=== PATIENT | female | born 1980 | race Caucasian/White ===

== ENCOUNTER 2018-10-13 09:56 | Inpatient (IN) ==
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
--- NOTE | 2018-10-10 12:35 | History and Physical Report ---
DATE OF ADMISSION: 10/13/2018 CHIEF COMPLAINT: Back pain, lower extremity difficulty, numbness, tingling, paresthesias. HISTORY OF PRESENT ILLNESS: She has knife-like pain, burning in nature, weakness associated. She is miserable. Four to six years in duration, failed conservative care including chiropractic physicians, therapy, medications. Visual analog scale, her pain is rated an 8. PAST MEDICAL HISTORY: Anxiety, asthma, stomach ulcers. PAST SURGICAL HISTORY: Tooth extraction. ALLERGIES: Negative. MEDICATIONS: Include gabapentin, diclofenac, narcotics, cold meds, an inhaler for COPD. FAMILY HISTORY: Diabetes. SOCIAL HISTORY: She is . No alcohol. Three children. One pack a day of cigarettes. REVIEW OF SYSTEMS: Positive for joint pain and weakness. No fevers, sweats, chills. Denies chest pain, palpitations. Respiratory, asthma. No shortness of breath. Denies nausea and vomiting. Has anxiety, depression. No diabetes. PHYSICAL EXAMINATION: GENERAL: She is 5 feet 6 inches, 160. She is alert, oriented. She is miserable. VITAL SIGNS: Blood pressure 130/80, pulse 80s, respiratory rate 16. HEENT: Pupils react to light and accommodation. Ear, nose and throat clear. LUNGS: Clear to auscultation. No rales, rhonchi or wheezing. ABDOMEN: Soft and nontender. CARDIOVASCULAR: Normal S1, S2, 80 beats per minute. No edema. SKIN: Intact. MUSCULOSKELETAL: She has decreased range of motion of the lumbar spine. Pain with percussion. She cannot come upright. She is bent over in kyphosis. She has weakness with plantarflexion. IMAGING DATA: X-rays demonstrate spondylolisthesis of the spine. PLAN: We have offered her a lumbar spine PLIF procedure, posterior lumbar interbody fusion at L5-S1.
[~2018-10-13 09:56] MED LIST: ACETAMINOPHEN 500 MG TAB PO SCH; CEFAZOLIN 2000MG 2,000 MG/15 ML SYR IV SCH; LR 15ML/HR IV SCH; SODIUM CHLORIDE 0.9% 1,000 ML IV SCH
[2018-10-13] MEDS ORDERED: MIDAZOLAM HCL 1 MG/ML 2ML VIAL ONE (10:39)
[2018-10-13] MEDS ORDERED: fentaNYL citrate 100 MCG/2 ML VIAL ONE (10:39)
[2018-10-13] MEDS ORDERED: ACETAMINOPHEN 1000 MG/100 ML IV IV ONE (10:55)
[2018-10-13] MEDS ORDERED: ACETAMINOPHEN 1,000 MG/100 ML VIAL IV SCH (11:00)
[2018-10-13] MEDS ORDERED: GELATIN SPONGE SZ 100 ONE (11:24)
[2018-10-13] MEDS ORDERED: THROMBIN FOR SOLN 20000 UNIT KIT ONE (11:24)
[2018-10-13] MEDS ORDERED: VANCOMYCIN HCL 1000MG/20ML VIAL ONE (11:24)
[2018-10-13] MEDS ORDERED: BUPIVACAINE/EPINEPHRINE 0.5% MPF 1:200,000 30 ML VIAL ONE (11:24)
[2018-10-13] MEDS ORDERED: BACITRACIN INJ 50,000 UNIT VIAL ONE (11:24)
[2018-10-13] MEDS ORDERED: ONDANSETRON INJ 2 MG/ML 2 ML VIAL IV PRN ×2 (11:39→16:06)
[2018-10-13] MEDS ORDERED: ATROPINE SULFATE 0.1 MG/ML 10ML SYR IV PRN (11:39)
[2018-10-13] MEDS ORDERED: HYDROmorphone INJ 1 MG/ML SYRINGE IV PRN (11:39)
[2018-10-13] MEDS ORDERED: ePHEDrine sulfate 50 MG/ML AMP IV PRN (11:39)
--- NOTE | 2018-10-13 11:39 | History & Physical Bridge Note ---
Date of Service October 13, 2018 History & Physical Bridge Note I have examined the patient, reviewed the History & Physical and in the interval since the performance of the History & Physical I have noted the following changes of clinical significance: no changes noted
[2018-10-13] MEDS ORDERED: ONDANSETRON INJ 2 MG/ML 2 ML VIAL ONE (12:18)
[2018-10-13] MEDS ORDERED: ROCURONIUM BROMIDE 10 MG/ML 5 ML VIAL ONE (12:18)
[2018-10-13] MEDS ORDERED: ePHEDrine sulfate 50 MG/ML AMP ONE (12:18)
[2018-10-13] MEDS ORDERED: LIDOCAINE HCL 2% 2 ML VIAL/AMP(20MG/ML) INFIL ONE (12:18)
[2018-10-13] MEDS ORDERED: NEOSTIGMINE METHYLSULFATE 5 MG/5 ML SYR ONE (12:18)
[2018-10-13] MEDS ORDERED: GLYCOPYRROLATE 0.2 MG/ML VIAL ONE (12:18)
[2018-10-13] MEDS ORDERED: DEXAMETHASONE SOD INJ 4 MG/ML VIAL ONE (12:18)
[2018-10-13] MEDS ORDERED: LARYING-O-JET KIT (LTA) ONE (12:18)
[2018-10-13] MEDS ORDERED: PROPOFOL IV EMULSION 10 MG/ML 20 ML VIAL IV ONE (12:18)
[2018-10-13] MEDS ORDERED: HYDROmorphone INJ 2 MG/ML SYR/VIAL ONE (12:19)
--- NOTE | 2018-10-13 14:00 | Fluoroscopy Report ---
INTRAOPERATIVE RADIOGRAPH CLINICAL HISTORY: L5-S1 spinal fusion. Fluoroscopy time: 13 seconds. FINDINGS: A single spot fluoroscopic view of the lower lumbar spine is presented. There has been disc ectomy at L5-S1, with laminectomy and posterior fusion from L4 -S1. Interpedicular screws are present at all levels. The orthopedic hardware appears intact. IMPRESSION: Intraoperative image from L4 -S1 spinal fusion as above. Electronically signed by: Abdelrahman Stevens M.D. 10/13/2018 1:59 PM
--- NOTE | 2018-10-13 14:26 | Post Operative Brief Note ---
Immediate Post Op Note v1 Date of Surgery October 13, 2018 Pre & Post Diagnosis Operation Date: 10/13/18 11:40 Pre-Op Diagnosis: Spondylolisthesis Post-Op Diagnosis: Spondylolisthesis Procedure Operation Date: 10/13/18 11:40 Actual Procedures p L4-S1 Decompression and Fusion , L5-S1 Interbody Cage(Not Applicable) - Jayme Winters DO Surgeon Jayme Winters DO Cyanide Furnace Operator tennille Estimated Blood Loss 250 Findings Consistent with Post-Op Diagnosis Drains Robb Catheter and Hemovac Drain Complications none Disposition Accompanied Patient To Recovery: Yes Disposition: Recovery Room Overlapping Procedure I was immediately available: during the entire case.
[2018-10-13] MEDS: fentaNYL citrate 100 MCG/2 ML VIAL IV PRN ×3 (14:38→14:50)
--- NOTE | 2018-10-13 15:20 | Anesthesiology Progress Note ---
Date of Service October 13, 2018 Anesthesia Post Procedure Vital Signs Vital Signs: Temp Pulse Pulse Resp BP Pulse Ox 10/13/18 15:05 36.5 C 91 H 14 145/78 H 99 10/13/18 14:55 36.7 C 84 14 124/75 99 10/13/18 14:45 36.7 C 89 16 121/92 98 10/13/18 14:35 36.7 C 91 H 16 112/69 98 10/13/18 14:25 36.7 C 101 H 14 126/90 99 10/13/18 10:32 37.1 C 103 H 16 143/97 H 93 Pain Intensity Lower Back: Pain Intensity: 10 Transfer of Care Handoff Completed per policy Notes Mental Status: alert / awake / arousable Patient Amnestic to Procedure: Yes Nausea / Vomiting: adequately controlled Pain: adequately controlled Airway Patency, RR, SpO2: stable & adequate BP & HR: stable & adequate Hydration State: stable & adequate Anesthetic Complications: no major complications apparent and Pt Satisfied with anesthetic care
[2018-10-13] MEDS ORDERED: FAMOTIDINE 20 MG TAB PO PRN (16:06)
[2018-10-13] MEDS ORDERED: HYDROmorphone INJ 0.5 MG/0.5 ML SYR IV PRN (16:06)
[2018-10-13] MEDS ORDERED: ACETAMINOPHEN 1,000 MG/100 ML VIAL IV PRN (16:06)
[2018-10-13] MEDS ORDERED: SOD PHOSPHATE/SOD BIPHOSPHATE ENEMA 132 ML BTL PR PRN (16:06)
[2018-10-13] MEDS ORDERED: ALBUTEROL HFA 8 GM INHALER INH PRN (16:06)
[2018-10-13] MEDS ORDERED: METOCLOPRAMIDE HCL INJ 5 MG/ML 2 ML VIAL IV PRN (16:06)
[2018-10-13] MEDS ORDERED: BISACODYL 10 MG SUPP PR PRN (16:06)
[2018-10-13] MEDS: KETOROLAC 30 MG/ML VIAL IV SCH ×2 (18:07→23:34)
[2018-10-13] MEDS: SUCRALFATE 1 GM TAB PO SCH ×2 (18:08→20:21)
[2018-10-13] MEDS: GABAPENTIN 300 MG CAP PO SCH (20:21)
[2018-10-13] MEDS: CEFAZOLIN 2000MG 2,000 MG/15 ML SYR IV SCH (20:21)
[2018-10-13] MEDS: PANTOprazole 40 MG TAB PO SCH (20:21)
[2018-10-13] MEDS: SODIUM CHLORIDE 0.9% 1000ML 1,000 ML IV SCH (20:28)
[2018-10-13] MEDS: DOCUSATE SODIUM/SENNA 50/8.6MG TAB PO SCH (20:28)
[2018-10-14] MEDS: CEFAZOLIN 2000MG 2,000 MG/15 ML SYR IV SCH (03:14)
[2018-10-14] MEDS: KETOROLAC 30 MG/ML VIAL IV SCH ×2 (05:32→11:51)
[2018-10-14] MEDS: SODIUM CHLORIDE 0.9% 1000ML 1,000 ML IV SCH (05:34)
--- NOTE | 2018-10-14 07:54 | Anesthesiology Progress Note ---
Date of Service October 14, 2018 Anesthesia Post Procedure Vital Signs Vital Signs: Temp Pulse Pulse Pulse Resp BP Pulse Ox 10/14/18 07:29 36.7 C 71 16 103/68 97 10/14/18 03:13 36.8 C 98 H 16 100/69 96 10/13/18 22:50 36.7 C 83 16 97/64 L 93 10/13/18 21:46 95 10/13/18 21:45 87 L 10/13/18 18:51 36.7 C 77 18 108/73 94 10/13/18 17:36 36.5 C 92 H 18 105/70 95 10/13/18 16:45 36.7 C 93 H 16 114/74 93 10/13/18 16:09 36.5 C 88 18 108/70 94 10/13/18 15:35 36.9 C 86 16 110/75 95 10/13/18 15:25 36.5 C 85 16 100/72 15 L 10/13/18 15:15 36.5 C 83 14 103/66 94 10/13/18 15:05 36.5 C 91 H 14 145/78 H 99 10/13/18 14:55 36.7 C 84 14 124/75 99 10/13/18 14:45 36.7 C 89 16 121/92 98 10/13/18 14:35 36.7 C 91 H 16 112/69 98 10/13/18 14:25 36.7 C 101 H 14 126/90 99 10/13/18 10:32 37.1 C 103 H 16 143/97 H 93 Notes Mental Status: alert / awake / arousable and participated in evaluation Nausea / Vomiting: adequately controlled Pain: adequately controlled Airway Patency, RR, SpO2: stable & adequate BP & HR: stable & adequate Hydration State: stable & adequate
--- NOTE | 2018-10-14 08:23 | Operative Report ---
DATE OF OPERATION: 10/13/2018 The patient was probably identified in the holding area prior to taking back to the OR. PREOPERATIVE DIAGNOSIS: Grade 1 spondylolisthesis with forward tilt of the 5th vertebrae. POSTOPERATIVE DIAGNOSIS: Grade 1 spondylolisthesis with forward tilt of the 5th vertebrae. PROCEDURE: Included, 1. L4-L5 sacrum fusion, reduction of spondylolisthesis. 2. Pedicle screw instrumentation L4-L5 in the sacrum, a 2 level instrumentation procedure. 3. Posterior lumbar interbody fusion at L5-S1. 4. Posterolateral fusion L4, L5 and S1. SURGEON: Jayme Winters DO [employer]: Derek Garcia PA-C COMPLICATIONS: Zero. IMPLANTS USED: [employer]. BLOOD LOSS: 350 mL DESCRIPTION OF PROCEDURE: The patient was taken to the Operating Room, a general intubated anesthetic provided to the patient, placed prone, scrubbed, prepped, draped sterile. Formal timeout obtained. We made a skin incision, fascial incision. A deep retractor was placed. It was an elegant dissection down to the lamina. I felt intraoperatively and even preoperatively that there be too much strain on just the pedicle screws at 5 to the sacrum. I felt obligated to incorporate the fourth lumbar vertebrae as well to span not just sacrum up to 5, but actually sacrum up to 4 with #5 in between. We safely dissected the neural elements, got pressure off each and every nerve root. I was pleased with the amount of decompression. We then instrumented spine. I safely got pedicle screws on the right hand side at 4, 5 and sacrum and the left hand side as well at L4, L5 and sacrum. I felt that the construct was relatively stable. I went ahead and did an interbody because of his severely degenerative nature of the L5-S1 disc interspace. So I did an interbody device, PEEK spacer at the L5-S1 region. This was packed with autograft. Prior to the interbody I did a complete discectomy at L5-S1. We reduced the spondylolisthesis. We locked down the construct. We irrigated thoroughly with approximately 500 mL of fluid. I then bone grafted out over the transverse process at L4 and the sacrum. I was pleased with the decompression, fusion, instrumentation and bone grafting. We then closed in layers. Over vancomycin powder with 1 Vicryl, 2-0 and 3-0 nylon on the skin, sterile dressing applied and the patient extubated to PACU stable, improved stable condition. There were no apparent complications. Bone graft use during the case was autograft from the patient's own spine lamina and spinous process along with a DBM, demineralized bone matrix type material. Sponge and needle count correct. I attest to the content of the Intraoperative Record and any orders documented therein. Any exception s are noted below.
[2018-10-14] MEDS: GABAPENTIN 300 MG CAP PO SCH ×3 (08:25→20:23)
[2018-10-14] MEDS: PANTOprazole 40 MG TAB PO SCH ×2 (08:25→20:23)
[2018-10-14] MEDS: SALMETEROL XINAFOATE 50MCG 28 BLISTER INH INH SCH (08:25)
[2018-10-14] MEDS: SUCRALFATE 1 GM TAB PO SCH ×4 (08:25→20:23)
[2018-10-14] MEDS: TIOTROPIUM BROMIDE 5 PUFF/90 MCG INH INH SCH (08:26)
[2018-10-14] MEDS: OXYCODONE HCL IR 5 MG TAB (IMMEDIATE RELEASE) PO PRN ×4 (08:30→20:22)
[2018-10-14] MEDS: NICOTINE 21 MG/24 HR TDSY TD SCH (11:49)
[2018-10-14] MEDS: DOCUSATE SODIUM/SENNA 50/8.6MG TAB PO SCH (20:23)
[2018-10-15] MEDS: OXYCODONE HCL IR 5 MG TAB (IMMEDIATE RELEASE) PO PRN ×3 (00:26→09:30)
[2018-10-15] MEDS: TIOTROPIUM BROMIDE 5 PUFF/90 MCG INH INH SCH (08:11)
[2018-10-15] MEDS: SALMETEROL XINAFOATE 50MCG 28 BLISTER INH INH SCH (08:11)
[2018-10-15] MEDS: PANTOprazole 40 MG TAB PO SCH (08:11)
[2018-10-15] MEDS: GABAPENTIN 300 MG CAP PO SCH (08:11)
[2018-10-15] MEDS: NICOTINE 21 MG/24 HR TDSY TD SCH (08:12)
[2018-10-15] MEDS: SUCRALFATE 1 GM TAB PO SCH (08:13)
--- NOTE | 2018-10-15 09:25 | Discharge Summary ---
Chelo is doing well postop day #2 from reconstructive spinal surgery 2-level fusion. She is alert, oriented, pain control, passing flatus, taking p.o. No chest pain, shortness of breath. Vital signs stable. ASSESSMENT: Status post lumbar spine reconstructive surgery. PLAN: She will be discharged home later today. Instructions given. Precautions given. If not made, she needed an appointment in the office in 10-12 days for suture removal. She is to be home, resting, taken easy and this was emphasized.
== END 2018-10-15 10:50 | disposition home or self-care (01) | DRG 455 ==
LOC: ASU 09:56 → 3E 14:29